=== PATIENT | female | born 1990 | race Caucasian/White ===

== ENCOUNTER → 2019-01-04 | Outpatient (CLI) | payer OTHER ==
[2019-01-04 09:53] LABS: HCT 35.1 % (34.0-46.0); HGB 12.1 gm/dL (11.4-16.0); MCH 29.9 pg (25.0-35.0); MCHC 34.4 g/dL (31.0-37.0); Mean Platelet Volume 6.6; Platelet Count 399 k/uL (150-450); RBC 4.03 m/uL (3.80-5.40); RDW 12.9 % (11.5-15.5); WBC 10.7 k/uL (3.8-10.6)
[2019-01-04 16:19] LABS: African American GFR (CKD) 142.8 (60.0-200.0)
[2019-01-04 17:40] LABS: HIV 1 AB Non-Reactive (Non-Reactive); HIV AB P24 Non-Reactive (Non-Reactive); HIV P24 AG Non-Reactive (Non-Reactive)
== END | disposition home or self-care (01) ==
LOC: LABWHC1 08:20
PROVIDERS: ATTEND Obstetrics & Gynecology
DX: Z34.01 Encounter for supervision of normal first pregnancy, first trimester (principal); R53.83 Other fatigue
CPT/HCPCS: 36415; 82565; 82947; 85027; 86762; 86780; 86850; 86900; 86901; 87340; 87390

== ENCOUNTER → 2019-04-12 | Outpatient (CLI) | payer OTHER ==
[2019-04-12 08:09] LABS: HCT 35.8 % (34.0-46.0); HGB 11.5 gm/dL (11.4-16.0); MCV 93.6 fL (80.0-100.0); Mean Platelet Volume 6.8; Platelet Count 416 k/uL (150-450); RBC 3.82 m/uL (3.80-5.40); RDW 12.9 % (11.5-15.5); WBC 11.5 k/uL (3.8-10.6)
== END ==
LOC: LABWHC1 06:47
PROVIDERS: ATTEND Obstetrics & Gynecology
DX: Z34.02 Encounter for supervision of normal first pregnancy, second trimester (principal); Z3A.00 Weeks of gestation of pregnancy not specified
CPT/HCPCS: 36415; 82950; 85027; 86850; 86900; 86901

== ENCOUNTER 2019-04-20 16:31 | Emergency (ER) | payer OTHER ==
--- NOTE | 2019-04-20 16:33 | ED ---
General Adult HPI - General Stated complaint: Needle stick, [facility] Time Seen by Provider: 04/20/19 16:32 Source: patient, RN notes reviewed Mode of arrival: ambulatory Limitations: no limitations - History of Present Illness Initial comments: 19-year-old female presents emergency from chief complaint of left thumb needlestick. 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 Patient states that there is small amount blood in her tetanus is up-to-date. She has no stiff a past history she is concerned that she is currently . Patient reports no significant history of hepatitis C or HIV of the patient she was suturing. Review of Systems ROS Statement: Those systems with pertinent positive or pertinent negative responses have been documented in the HPI. ROS Other: All systems not noted in ROS Statement are negative. General Exam General appearance: alert, in no apparent distress Head exam: Present: atraumatic, normocephalic, normal inspection Respiratory exam: Present: normal lung sounds bilaterally. Absent: respiratory distress, wheezes, rales, rhonchi, stridor Cardiovascular Exam: Present: regular rate, normal rhythm, normal heart sounds. Absent: systolic murmur, diastolic murmur, rubs, gallop, clicks GI/Abdominal exam: Present: soft, normal bowel sounds. Absent: distended, tenderness, guarding, rebound, rigid Neurological exam: Present: alert Skin exam: Present: warm, dry, intact, normal color. Absent: rash Medical Decision Making - Medical Decision Making Blood was drawn from patient and source. HIV prophylaxis based on rapid HIV Disposition Clinical Impression: Needle stick injury Disposition: HOME SELF-CARE Condition: Stable Instructions (If sedation given, give patient instructions): Needle Stick Injuries (ED) Additional Instructions: Please return to the Emergency Department if symptoms worsen or any other concerns. Is patient prescribed a controlled substance at d/c from ED?: No Referrals: Nava Martinez MD [Primary Care Provider] - 1-2 days Time of Disposition: 16:38
[2019-04-20 17:08] VITALS: BP 120/76; PULSE 70; RESP 18
== END 2019-04-20 16:50 | disposition home or self-care (01) ==
LOC: EC 16:31
DX: O9A.219 Injury, poisoning and certain other consequences of external causes complicating pregnancy, unspecified trimester (principal); S69.92XA Unspecified injury of left wrist, hand and finger(s), initial encounter; W46.0XXA Contact with hypodermic needle, initial encounter; Y93.89 Activity, other specified; Y92.234 Operating room of hospital as the place of occurrence of the external cause; Y99.0 Civilian activity done for income or pay; Z3A.00 Weeks of gestation of pregnancy not specified
CPT/HCPCS: 99282

== ENCOUNTER 2019-07-28 05:44 | Inpatient (IN) | payer OTHER, BC ==
--- NOTE | 2019-07-27 12:31 | P.HPOB ---
History of Present Illness H&P Date: 07/27/19 Chief Complaint: Requested induction of labor. This patient is a pleasant 28-year-old 1 para 0 female estimated date of confinement 07/31/2019 estimated gestational age 39-3/7 weeks who presents to labor and delivery for requested induction of labor. Patient's care was complicated by an EIF and she was referred to maternal- medicine however evaluation there was negative. Patient now has a favorable cervix is requesting induction of labor. Review of Systems Genitourinary: Reports Menstruation: Reports amenorrhea Past Medical History Past Medical History: Asthma History of Any Multi-Drug Resistant Organisms: None Reported Past Surgical History: No Surgical Hx Reported Past Anesthesia/Blood Transfusion Reactions: No Reported Reaction Past Psychological History: No Psychological Hx Reported Smoking Status: Never smoker Past Alcohol Use History: None Reported Past Drug Use History: None Reported Medications and Allergies Allergies Allergy/AdvReac Type Severity Reaction Status Date / Time No Known Allergies Allergy Verified 07/27/19 12:29 Exam - OBG Physical Exam Abdomen: bowel sounds normal, no diffuse tenderness, no bruit present, no guarding noted, no hepatomegaly, no splenomegaly, no mass Vulva: both: normal Vagina: normal moisture, no discharge Cervix: no lesion (Cervix in the office is 2 cm dilated.), no discharge Uterus: enlarged (Fundal height 38 cm) Results blood work shows she is O-, rubella immune, RPR nonreactive, hepatitis B negative, HIV is nonreactive, group B strep was negative, Glucola was normal, ultrasounds including a level III ultrasound was normal. Most recent growth ultrasound showed estimated weight at 5#15oz which is the 59th percentile and that was on July 01. Assessment and Plan Assessment: This is a pleasant 28-year-old 1 para 0 female 39-4/7 weeks gestation admitted to labor and delivery for requested induction of labor. Plan is induction of labor and anticipate vaginal delivery. (1) 39 weeks gestation of Status: Acute Code(s): Z3A.39 - 39 WEEKS GESTATION OF SNOMED Code(s): 56459217 (2) Elective induction of labor planned Status: Acute Code(s): BYM3247 - SNOMED Code(s): 896245136 (3) Rh negative status during Status: Acute Code(s): O26.899 - OTH RELATED CONDITIONS, UNSPECIFIED TRIMESTER; Z67.91 - UNSPECIFIED BLOOD TYPE, RH NEGATIVE SNOMED Code(s): 463467381
[2019-07-28] MEDS ORDERED: LACTATED RINGERS 1,000 ML IV SCH (05:56)
[2019-07-28] MEDS ORDERED: OXYTOCIN 10 UNIT/ML 1 ML VIAL IM PRN (05:56)
[2019-07-28] MEDS ORDERED: CARBOPROST TROMETHAMINE 250 MCG/ML 1 ML AMP IM PRN (05:56)
[2019-07-28] MEDS ORDERED: LIDOCAINE 0.5% (PF) 5 MG/ML (50 ML SDV) SQ PRN (05:56)
[2019-07-28] MEDS ORDERED: TERBUTALINE 1 MG/ML VIAL SQ PRN (05:56)
[2019-07-28] MEDS ORDERED: OXYTOCIN 30 UNITS/500 ML NS 30 UNIT in SALINE 1 500ML.BAG IV SCH (05:56)
[2019-07-28] MEDS ORDERED: METHYLERGONOVINE 0.2 MG/ML 1 ML AMP IM PRN (05:56)
[2019-07-28 06:22] LABS: Basophils % (A) 0 %; Eosinophils # (A) 0.1 k/uL (0-0.7); Eosinophils % (A) 1 %; HCT 38.2 % (34.0-46.0); HGB 12.9 gm/dL (11.4-16.0); Lymphocytes # (A) 1.8 k/uL (1.0-4.8); Lymphocytes % (A) 19 %; MCH 30.1 pg (25.0-35.0); MCHC 33.7 g/dL (31.0-37.0); MCV 89.4 fL (80.0-100.0); Mean Platelet Volume 7.7; Monocytes # (A) 0.4 k/uL (0-1.0); Monocytes % (A) 4 %; Neutrophils # (A) 7.3 k/uL (1.3-7.7); Neutrophils % (A) 75 %; Platelet Count 299 k/uL (150-450); RBC 4.27 m/uL (3.80-5.40); RDW 12.5 % (11.5-15.5); WBC 9.7 k/uL (3.8-10.6)
[2019-07-28] MEDS ORDERED: ROPIVACAINE 100 MG, fentaNYL (PF) 200 MCG in SODIUM CHLORIDE 0.9% 76 ML EPIDURAL ONE (13:24)
[2019-07-28] MEDS ORDERED: HYDROCORTISONE 2.5% RECTAL CREAM 30 GM TUBE RECTAL PRN (14:20)
[2019-07-28] MEDS ORDERED: BISACODYL 10 MG SUPP RECTAL PRN (14:20)
[2019-07-28] MEDS ORDERED: ACETAMINOPHEN TAB 325 MG TAB PO PRN (14:20)
[2019-07-28] MEDS ORDERED: diphenhydrAMINE 25 MG CAP PO PRN (14:20)
[2019-07-28] MEDS ORDERED: diphenhydrAMINE 50 MG/ML 1 ML VIAL IVP PRN (14:20)
[2019-07-28] MEDS ORDERED: Rhogam IMMUNE GLOBULIN 1,500 UNIT/1 ML IM ONE (14:20)
[2019-07-28] MEDS ORDERED: LANOLIN CREAM 5 GM TUBE TOPICAL PRN (14:20)
[2019-07-28] MEDS ORDERED: ZOLPIDEM 5 MG TAB PO PRN (14:20)
[2019-07-28] MEDS ORDERED: WITCH HAZEL 1 EACH MED..PAD TOPICAL PRN (14:20)
[2019-07-28] MEDS ORDERED: OXYTOCIN 20 UNITS/1000 ML NS 1,000 ML IV SCH (14:20)
[2019-07-28] MEDS ORDERED: BENZOCAINE/MENTHOL SPRAY 1 GM/SPRAY AEROSOL TOPICAL PRN (14:20)
[2019-07-28] MEDS ORDERED: SIMETHICONE 80 MG CHEWABLE PO PRN (14:20)
--- NOTE | 2019-07-28 16:48 | P.PROBDLV ---
Vaginal Delivery Note - . Vaginal Delivery Note: Normal vaginal delivery viable female Apgars 9 and 9 delivery time is 1354 hrs. Please see dictated H&P for intimate details of this patient's admission. Brief summary is a pleasant 28-year-old 1 para 0 female 39-4/7 weeks who presented this morning for requested induction of labor. On admission patient's cervix is 3 cm dilated she has artificial rupture membranes for clear fluid and Pitocin induction of labor per protocol. Patient's labor progresses she does get an epidural for pain control. Patient quickly thereafter gets to complete pushes the head to the perineum. Posterior perineum was supported we have controlled delivery of infant's head over the intact perineum. Mouth and nares are bulb suctioned. There is no evidence of nuchal cord but there is a compound presentation with hand. With gentle downward traction and maternal effort we have delivery the anterior and posterior shoulder and rest this infant's body. Is a vigorous viable female Apgars 9 and 9 delivery time was 1354 hrs. After delivery of the infant the umbilical cord is aloud to quit pulsing is doubly clamped and cut. Cord blood is obtained for Rh status. Placenta spontaneously delivered intact. Inspection of the perineum shows a small first- degree perineal laceration the left lower vaginal area which is repaired with 3- 0 Vicryl usual fashion. Good reapproximation is noted. All counts are correct 3. Estimated blood loss is 100 mL. There are no complications. and mother stable delivery room.
[2019-07-28] MEDS: SENNOSIDES-DOCUSATE SODIUM 1 EACH TAB PO SCH ×2 (18:14→21:01)
[2019-07-29 04:40] VITALS: PULSE 76
[2019-07-29] MEDS: IBUPROFEN 600 MG TAB PO PRN ×2 (06:40→13:13)
--- NOTE | 2019-07-29 06:40 | P.PNOBGVD ---
Subjective - Subjective Patient reports: Reports appetite normal, Reports voiding normally, Reports pain well controlled, Reports ambulating normally : doing well Objective - Latest Vital Signs Latest vital signs: Vital Signs Temp Pulse Resp BP 07/29/19 04:00 98.0 F 76 14 134/72 07/29/19 00:00 98.2 F 75 16 110/80 07/28/19 20:00 98.0 F 77 16 108/76 07/28/19 16:15 92 16 122/74 07/28/19 15:45 98.5 F 76 16 131/73 07/28/19 15:15 78 15 126/72 07/28/19 15:00 83 16 128/80 07/28/19 14:45 83 16 123/58 07/28/19 14:30 96 16 124/68 07/28/19 14:15 98 16 123/76 Intake and Output 07/28/19 07/28/19 07/29/19 14:59 22:59 06:59 Other: # Voids 1 3 - Exam Lungs: bilateral: normal Chest: Normal S1, Normal S2 Extremities: Present: normal Abdomen: Present: normal appearance, soft Uterus: Present: normal, firm Assessment and Plan Assessment: day #1. Patient is resting without complaints. She desires to go home. Vital signs are stable she is afebrile. Uterus is firm nontender she's having normal lochia. My impression is a normal course. Plan is to continue routine care and discharge home later today (1) 39 weeks gestation of Current Visit: No Status: Acute Code(s): Z3A.39 - 39 WEEKS GESTATION OF SNOMED Code(s): 56316640 (2) Elective induction of labor planned Current Visit: No Status: Acute Code(s): KGZ2307 - SNOMED Code(s): 923616175 (3) Rh negative status during Current Visit: No Status: Acute Code(s): O26.899 - OTH RELATED CONDITIONS, UNSPECIFIED TRIMESTER; Z67.91 - UNSPECIFIED BLOOD TYPE, RH NEGATIVE SNOMED Code(s): 041858873
--- NOTE | 2019-07-29 06:43 | P.DS ---
Providers Date of admission: 07/28/19 05:44 Expected date of discharge: 07/29/19 Attending physician: Jamie Rothman Primary care physician: Stated None - Discharge Diagnosis(es) (1) 39 weeks gestation of Current Visit: No Status: Acute (2) Elective induction of labor planned Current Visit: No Status: Acute (3) Rh negative status during Current Visit: No Status: Acute Hospital Course: Please see dictated H&P for intimate details of this patient's admission. Brief summary this is a pleasant 28-year-old 1 para 0 female 39-4/7 weeks who presents to labor and delivery for requested induction of labor. Patient quickly goes on have a vaginal delivery of viable female . Please see dictated delivery note. day #1 patient wishes to go home was felt be stable for discharge home follow up with me in 6 weeks. Procedures: Induction of labor and normal vaginal delivery Patient Condition at Discharge: Good Plan - Discharge Summary New Discharge Prescriptions: No Action Montelukast [Singulair] 10 mg PO DAILY Loratadine [Claritin] 10 mg PO DAILY Budesonide/Formoterol Fumarate [Symbicort 80-4.5 Mcg Inhaler] 80 mg INHALATION DAILY Discharge Medication List Budesonide/Formoterol Fumarate [Symbicort 80-4.5 Mcg Inhaler] 80 mg INHALATION DAILY 07/28/19 [History] Loratadine [Claritin] 10 mg PO DAILY 07/28/19 [History] Montelukast [Singulair] 10 mg PO DAILY 07/28/19 [History] Follow up Appointment(s)/Referral(s): Jamie Rothman MD [STAFF PHYSICIAN] - 09/13/19 2:00 pm Patient Instructions/Handouts: Vaginal Delivery (DC) Activity/Diet/Wound Care/Special Instructions: No intercourse or anything per vagina for 6 weeks. Please call if any fever, chills, excessive vaginal bleeding, and/or abdominal pain Discharge Disposition: HOME SELF-CARE
[2019-07-29 10:33] VITALS: BP 123/68; RESP 18; TEMP 97.4
[2019-07-29] MEDS: SENNOSIDES-DOCUSATE SODIUM 1 EACH TAB PO SCH (11:14)
== END 2019-07-29 15:30 | disposition home or self-care (01) | DRG 807 ==
LOC: 4FBP 05:44
PROVIDERS: ADMIT Obstetrics & Gynecology; ATTEND Obstetrics & Gynecology
PROC: 00HU33Z Insertion of Infusion Device into Spinal Canal, Percutaneous Approach (ICD-10-PCS; principal; 2019-07-28)
PROC: 0HQ9XZZ Repair Perineum Skin, External Approach (ICD-10-PCS; principal; 2019-07-28)
PROC: 3E0R3BZ Introduction of Anesthetic Agent into Spinal Canal, Percutaneous Approach (ICD-10-PCS; principal; 2019-07-28)
PROC: 10E0XZZ Delivery of Products of Conception, External Approach (ICD-10-PCS; principal; 2019-07-28)
DX: O32.6XX0 Maternal care for compound presentation, not applicable or unspecified (principal); Z37.0 Single live birth; O99.52 Diseases of the respiratory system complicating childbirth; O26.893 Other specified pregnancy related conditions, third trimester; O70.0 First degree perineal laceration during delivery; J45.909 Unspecified asthma, uncomplicated; Z3A.39 39 weeks gestation of pregnancy; Z67.91 Unspecified blood type, Rh negative
CPT/HCPCS: 85025; 85461; 86850; 86900; 86901

== ENCOUNTER → 2021-09-15 | Outpatient (CLI) | payer OTHER, BC ==
[2021-09-15 11:41] LABS: HCT 37.6 % (37.2-46.3); HGB 12.1 g/dL (12.0-15.0); MCH 29.3 pg (27.0-32.0); MCHC 32.2 g/dL (32.0-37.0); NRBC Per 100 WBC 0 /100 WBCS (0.0-0.0); Platelet Count 386 X 10*3/uL (140-440); RBC 4.13 X 10*6/uL (4.10-5.20); RDW 12.8 % (11.5-14.5); WBC 8.49 X 10*3/uL (4.50-10.00)
== END | disposition home or self-care (01) ==
LOC: LABWHC1 08:29
PROVIDERS: ATTEND Obstetrics & Gynecology
DX: Z00.00 Encounter for general adult medical examination without abnormal findings (principal)
CPT/HCPCS: 36415; 82950; 85027

== ENCOUNTER 2021-12-09 12:00 | Inpatient (IN) | payer BC ==
[2021-12-09] MEDS ORDERED: CARBOPROST TROMETHAMINE 250 MCG/ML 1 ML AMP IM PRN (12:42)
[2021-12-09] MEDS ORDERED: OXYTOCIN 10 UNIT/ML 1 ML VIAL IM PRN (12:42)
[2021-12-09] MEDS ORDERED: METHYLERGONOVINE 0.2 MG/ML 1 ML AMP IM PRN (12:42)
[2021-12-09] MEDS ORDERED: LIDOCAINE 0.5% (PF) 5 MG/ML (50 ML SDV) SQ PRN (12:42)
[2021-12-09] MEDS ORDERED: TERBUTALINE 1 MG/ML VIAL SQ PRN (12:42)
[2021-12-09] MEDS ORDERED: LACTATED RINGERS 1,000 ML IV SCH (12:45)
--- NOTE | 2021-12-09 12:58 | P.HPOB ---
History of Present Illness H&P Date: 12/09/21 Chief Complaint: Contractions This patient is a pleasant 31-year-old 2 para 1 female estimated date of confinement 12/18/2021 estimated gestational age 38-5/7 weeks who presents to labor and delivery with complaints of contractions. Patient was here earlier this morning was 3 cm dilated is now 9 cm dilated thought to be in active labor. care has been uncomplicated. She did develop COVID at approximately 25 weeks' gestation. otherwise has been uncomplicated other than some varicose veins and vulvar varicosities. Review of Systems Genitourinary: Reports Menstruation: Reports amenorrhea Past Medical History Past Medical History: Asthma History of Any Multi-Drug Resistant Organisms: None Reported Past Surgical History: No Surgical Hx Reported Past Anesthesia/Blood Transfusion Reactions: No Reported Reaction Smoking Status: Never smoker Past Alcohol Use History: None Reported Past Drug Use History: None Reported - Past Family History Mother Family Medical History: Thyroid Disorder Medications and Allergies Home Medications Medication Instructions Recorded Confirmed Type Budesonide/Formoterol Fumarate 80 mg INHALATION DAILY 07/28/19 12/09/21 History [Symbicort 80-4.5 Mcg Inhaler] Loratadine [Claritin] 10 mg PO DAILY 07/28/19 12/09/21 History Montelukast [Singulair] 10 mg PO DAILY 07/28/19 12/09/21 History Pnv No.95/Ferrous Fum/Folic AC 1 tab PO DAILY 12/09/21 12/09/21 History [ Multivitamin Tablet] Allergies Allergy/AdvReac Type Severity Reaction Status Date / Time No Known Allergies Allergy Verified 12/09/21 12:40 Exam Intake and Output 12/08/21 12/09/21 12/09/21 22:59 06:59 14:59 Other: Weight 84.368 kg - OBG Physical Exam Abdomen: bowel sounds normal, no diffuse tenderness, no bruit present, no guarding noted, no hepatomegaly, no splenomegaly, no mass Vulva: both: normal Vagina: normal moisture, no discharge Cervix: no lesion (Cervix is 9 simmers dilated completely effaced -2 station vertex), no discharge Uterus: enlarged Results blood work shows she is O-, rubella immune, RPR nonreactive, hepatitis B negative, HIV is nonreactive, Glucola was normal, group B strep was negative, and growth ultrasounds have been normal. Assessment and Plan Assessment: This is a pleasant 31-year-old 2 para 1 female 38-5/7 weeks' gestation in active labor. Plan is anticipate vaginal delivery. (1) 38 weeks gestation of Current Visit: Yes Status: Acute Code(s): Z3A.38 - 38 WEEKS GESTATION OF SNOMED Code(s): 93524706 (2) Normal labor Current Visit: Yes Status: Acute Code(s): O80 - ENCOUNTER FOR FULL-TERM UNCOMPLICATED DELIVERY; Z37.9 - OUTCOME OF DELIVERY, UNSPECIFIED SNOMED Code(s): 21150867 (3) Rh negative status during Current Visit: No Status: Acute Code(s): O26.899 - OTH RELATED CONDITIONS, UNSPECIFIED TRIMESTER; Z67.91 - UNSPECIFIED BLOOD TYPE, RH NEGATIVE SNOMED Code(s): 210987657
[2021-12-09 13:09] LABS: Basophils % (A) 0 %; Eosinophils % (A) 0 %; HCT 38.7 % (34.0-46.0); HGB 12.7 gm/dL (11.4-16.0); Lymphocytes % (A) 7 %; MCH 29.8 pg (25.0-35.0); MCV 90.3 fL (80.0-100.0); Mean Platelet Volume 7.5; Monocytes # (A) 0.5 k/uL (0-1.0); Monocytes % (A) 4 %; Neutrophils # (A) 12.3 k/uL (1.3-7.7); Neutrophils % (A) 88 %; Platelet Count 432 k/uL (150-450); RBC 4.28 m/uL (3.80-5.40); RDW 13.3 % (11.5-15.5)
[2021-12-09] MEDS ORDERED: ZOLPIDEM 5 MG TAB PO PRN (14:05)
[2021-12-09] MEDS ORDERED: Rhogam IMMUNE GLOBULIN 1,500 UNIT/1 ML IM ONE (14:05)
[2021-12-09] MEDS ORDERED: ACETAMINOPHEN TAB 325 MG TAB PO PRN (14:05)
[2021-12-09] MEDS ORDERED: LANOLIN CREAM 5 GM TUBE TOPICAL PRN (14:05)
[2021-12-09] MEDS ORDERED: bisacodyL 10 MG SUPP RECTAL PRN (14:05)
[2021-12-09] MEDS ORDERED: diphenhydrAMINE 50 MG/ML 1 ML VIAL IVP PRN (14:05)
[2021-12-09] MEDS ORDERED: SIMETHICONE 80 MG CHEWABLE PO PRN (14:05)
[2021-12-09] MEDS ORDERED: diphenhydrAMINE 25 MG CAP PO PRN (14:05)
[2021-12-09] MEDS ORDERED: HYDROCORTISONE 2.5% RECTAL CREAM 30 GM TUBE RECTAL PRN (14:05)
[2021-12-09] MEDS ORDERED: BENZOCAINE/MENTHOL SPRAY 1 GM/SPRAY AEROSOL TOPICAL PRN (14:05)
[2021-12-09] MEDS ORDERED: OXYTOCIN 30 UNITS/500 ML NS 30 UNIT in SALINE 1 500ML.BAG IV SCH (14:15)
--- NOTE | 2021-12-09 14:15 | P.PROBDLV ---
Vaginal Delivery Note - . Vaginal Delivery Note: Normal spontaneous vaginal delivery viable male infant Apgars 9 and 9 delivery time was 1350 hrs. Please see dictated H&P for intimate details of this patient's admission. Brief summary this is a pleasant 31-year-old 2 para 1 female estimated gestational age 38-5/7 weeks who presents to labor and delivery with complaints of contractions. Patient's found to be 9 cm dilated in active labor. Patient is artificial rupture membranes for clear fluid. Patient quickly thereafter progresses and pushes approximately 3 times pushes the head to the perineum. Posterior perineum is supported we have controlled delivery of the 's head over the intact perineum. 's presentation was left occiput anterior. There is no evidence of a nuchal cord. With gentle downward traction we then have deliver the anterior and posterior shoulder and rest this infant's body. This is a vigorous viable male infant Apgars are 9 and 9 delivery time was 1350 hrs. After delivery of the infant is laid on the mother's abdomen. Once the cord is done pulsating, the umbilical cord is doubly clamped and cut. The placenta is then spontaneously delivered intact. Estimated blood loss is 100 mL. There are no lacerations and no repairs required. Infant and mother stable delivery room. There are no complications. All counts are correct 3.
[2021-12-09] MEDS: SENNOSIDES-DOCUSATE SODIUM 1 EACH TAB PO SCH (20:40)
[2021-12-09] MEDS ORDERED: LORATADINE 10 MG TAB PO SCH (21:00)
[2021-12-09] MEDS ORDERED: MONTELUKAST 10 MG TAB PO SCH (21:00)
[2021-12-09] MEDS ORDERED: SYMBICORT 80-4.5 MCG INHALER INHALATION SCH ×2 (21:00)
[2021-12-09] MEDS: IBUPROFEN 600 MG TAB PO PRN (22:46)
--- NOTE | 2021-12-10 06:35 | P.PNOBGVD ---
Subjective - Subjective Patient reports: Reports appetite normal, Reports voiding normally, Reports pain well controlled, Reports ambulating normally : doing well Objective - Latest Vital Signs Latest vital signs: Vital Signs Temp Pulse Resp BP Pulse Ox 12/10/21 00:50 98.1 F 72 16 109/62 98 12/09/21 19:45 98.3 F 87 16 124/71 98 12/09/21 16:06 97.7 F 75 14 113/70 12/09/21 15:36 74 16 108/59 12/09/21 15:06 98.4 F 76 16 112/60 12/09/21 14:51 88 14 115/58 12/09/21 14:36 86 14 109/59 12/09/21 14:21 85 16 107/60 12/09/21 14:06 98.2 F 93 16 115/66 12/09/21 12:30 97 14 125/71 Intake and Output 12/09/21 12/09/21 12/10/21 14:59 22:59 06:59 Intake Total 167 Output Total 50 Balance 167 -50 Intake: Intake, IV Titration 167 Amount Oxytocin 30 Units/500 ml 167 Ns 30 unit In Saline 1 500ml.bag @ Per Protocol IV .Q0M [facility] Rx#:[id number] Output: Output, Quantitative 50 Blood Loss Other: # Voids 1 1 Weight 84.368 kg - Exam Lungs: bilateral: normal Chest: Normal S1, Normal S2 Extremities: Present: normal Abdomen: Present: normal appearance, soft Uterus: Present: normal, firm - Labs Labs: Abnormal Lab Results - Last 24 Hours (Table) 12/09/21 Range/Units 12:35 WBC 14.0 H (3.8-10.6) k/uL Neutrophils # 12.3 H (1.3-7.7) k/uL Assessment and Plan Assessment: day #1. Patient is resting without complaints and wishes to go home. Vital signs are stable and she is afebrile. Uterus is firm nontender and she is having normal lochia. My impression is that this is a normal course. Plan is to continue routine care discharge home today (1) 38 weeks gestation of Current Visit: Yes Status: Acute Code(s): Z3A.38 - 38 WEEKS GESTATION OF Stephanie BAXTER SNOMED Code(s): 36726362 (2) Normal labor Current Visit: Yes Status: Acute Code(s): O80 - ENCOUNTER FOR FULL-TERM UNCOMPLICATED DELIVERY; Z37.9 - OUTCOME OF DELIVERY, UNSPECIFIED SNOMED Code(s): 20586088 (3) Rh negative status during Current Visit: No Status: Acute Code(s): O26.899 - OTH RELATED CONDITIONS, UNSPECIFIED TRIMESTER; Z67.91 - UNSPECIFIED BLOOD TYPE, RH NEGATIVE SNOMED Code(s): 616081301
--- NOTE | 2021-12-10 06:40 | P.DS ---
Providers Date of admission: 12/09/21 12:30 Expected date of discharge: 12/10/21 Attending physician: Jamie Rothman Primary care physician: Stated None - Discharge Diagnosis(es) (1) 38 weeks gestation of Current Visit: Yes Status: Acute (2) Normal labor Current Visit: Yes Status: Acute (3) Rh negative status during Current Visit: No Status: Acute Hospital Course: Please see dictated H&P for intimate details of this patient's admission. In brief summary this is a pleasant 31-year-old 2 para 1 female 38-5/7 weeks gestation who is admitted to labor and delivery in active labor. Patient quickly goes on have a vaginal delivery viable male . Please see dictated delivery note. day #1 patient is doing well wishes to go home. Patient's felt be stable for discharge home follow up with me in 6 weeks. Procedures: Normal spontaneous vaginal delivery Patient Condition at Discharge: Good Plan - Discharge Summary New Discharge Prescriptions: New Ibuprofen [Motrin] 600 mg PO Q6HR PRN #30 tab PRN Reason: Mild Pain (Scale 1 To 3) No Action Montelukast [Singulair] 10 mg PO DAILY Loratadine [Claritin] 10 mg PO DAILY Budesonide/Formoterol Fumarate [Symbicort 80-4.5 Mcg Inhaler] 80 mg INHALATION DAILY Pnv No.95/Ferrous Fum/Folic AC [ Multivitamin Tablet] 1 tab PO DAILY Discharge Medication List Budesonide/Formoterol Fumarate [Symbicort 80-4.5 Mcg Inhaler] 80 mg INHALATION DAILY 07/28/19 [History] Loratadine [Claritin] 10 mg PO DAILY 07/28/19 [History] Montelukast [Singulair] 10 mg PO DAILY 07/28/19 [History] Pnv No.95/Ferrous Fum/Folic AC [ Multivitamin Tablet] 1 tab PO DAILY 12/09/21 [History] Ibuprofen [Motrin] 600 mg PO Q6HR PRN #30 tab 12/10/21 [Rx] Follow up Appointment(s)/Referral(s): Jamie Rothman MD [STAFF PHYSICIAN] - 6 Weeks Patient Instructions/Handouts: Vaginal Delivery (DC) Activity/Diet/Wound Care/Special Instructions: No intercourse or anything per vagina for 6 weeks. Please call if any fever, chills, excessive vaginal bleeding, and/or abdominal pain. Discharge Disposition: HOME SELF-CARE
[2021-12-10 07:32] LABS: Basophils % (A) 0 %; Eosinophils # (A) 0.2 k/uL (0-0.7); Eosinophils % (A) 1 %; HCT 36.5 % (34.0-46.0); HGB 11.6 gm/dL (11.4-16.0); Lymphocytes # (A) 1.4 k/uL (1.0-4.8); Lymphocytes % (A) 12 %; MCH 29.2 pg (25.0-35.0); MCHC 31.9 g/dL (31.0-37.0); MCV 91.5 fL (80.0-100.0); Monocytes # (A) 0.5 k/uL (0-1.0); Monocytes % (A) 4 %; Neutrophils # (A) 9.6 k/uL (1.3-7.7); Neutrophils % (A) 81 %; Platelet Count 346 k/uL (150-450); RBC 3.98 m/uL (3.80-5.40); RDW 12.8 % (11.5-15.5); WBC 11.8 k/uL (3.8-10.6)
[2021-12-10] MEDS: SENNOSIDES-DOCUSATE SODIUM 1 EACH TAB PO SCH (08:11)
[2021-12-10] MEDS: IBUPROFEN 600 MG TAB PO PRN (08:11)
[2021-12-10 08:18] VITALS: BP 104/62; PULSE 87; RESP 17; TEMP 99
[2021-12-10] MEDS ORDERED: LORATADINE 10 MG TAB PO SCH (21:00)
== END 2021-12-10 15:00 | disposition home or self-care (01) | DRG 807 ==
LOC: FBPOP 12:00 → 4FBP 12:30
PROVIDERS: ADMIT Obstetrics & Gynecology; ATTEND Obstetrics & Gynecology
PROC: 3E0234Z Introduction of Serum, Toxoid and Vaccine into Muscle, Percutaneous Approach (ICD-10-PCS; principal; 2021-12-09)
PROC: 10E0XZZ Delivery of Products of Conception, External Approach (ICD-10-PCS; principal; 2021-12-09)
PROC: 10907ZC Drainage of Amniotic Fluid, Therapeutic from Products of Conception, Via Natural or Artificial Opening (ICD-10-PCS; principal; 2021-12-09)
DX: O26.893 Other specified pregnancy related conditions, third trimester (principal); Z37.0 Single live birth; Z67.41 Type O blood, Rh negative; O87.8 Other venous complications in the puerperium; O99.52 Diseases of the respiratory system complicating childbirth; J45.909 Unspecified asthma, uncomplicated; Z3A.38 38 weeks gestation of pregnancy; Z79.51 Long term (current) use of inhaled steroids; Z79.899 Other long term (current) drug therapy; Z86.16 Personal history of COVID-19; Z28.310 Unvaccinated for COVID-19; Z83.49 Family history of other endocrine, nutritional and metabolic diseases
CPT/HCPCS: 85025; 85461; 86850; 86900; 86901; 94640

== ENCOUNTER → 2021-12-09 | Outpatient (CLI) | payer BC ==
[2021-12-09 03:26] VITALS: BP 127/78; PULSE 96; RESP 16; TEMP 98.8
--- NOTE | 2021-12-09 08:14 | P.MSEPDOC ---
Presenting Problems - Arrival Data Date of Arrival on Unit: 12/09/21 Time of Arrival on Unit: 01:20 Mode of Transport: Ambulatory - Complaint OB-Reason for Admission/Chief Complaint: Possible Onset of Labor, Rule Out SROM Comment: Pt reports UC's over the last few hours q10min. Pt states possible ROM around 0110 for clear fluid. Medical History - Information : 2 Para: 1 Term: 1 : 0 Abortions: Spontaneous or Elective: 0 Number of Living Children: 1 - Gestational Age Gestational Age by JAC (wks/days): 38 Weeks and 5 Days Review of Systems - Review of Systems Constitutional: No problems Breast: No problems ENT: No problems Cardiovascular: No problems Respiratory: No problems Gastrointestinal: No problems Genitourinary: No problems Musculoskeletal: No problems Neurological: No problems Skin: No problems Vital Signs - Temperature Temperature: 98.8 F Temperature Source: Temporal Artery Scan - Pulse Pulse Oximetery Pulse Rate: 96 Pulse Assessment Method: Pulse Oximetry - Respirations Respiratory Rate: 16 Oxygen Delivery Method: Room Air O2 Sat by Pulse Oximetry: 97 - Blood Pressure Right Arm Blood Pressure: 127/78 Blood Pressure Mean: 94 Blood Pressure Source: Automatic Cuff Medical Screen Scoring - Cervical Exam Dilation (cm): 3 Effacement (%): 60 Station: -3 Membranes: Intact - Uterine Contractions Frequency From (mins): 3 Frequency To (mins): 10 Duration From (seconds): 50 Duration To (seconds): 80 Intensity: Mild Resting: Soft to palpation - Assessment - Baby A Baseline FHR: 125 Heart Rate - NICHD Category: Category I (Normal) NST: Reactive Physician Notification - Physician Notified Physician Notified Date: 12/09/21 Physician Notified Time: 02:55 Physician: Jamie Rothman New Order Received: Yes (D/C home) - Notification Comment Comment: Dr. Rothman notified of pt's arrival to triage with c/o UC's q10min and possible ROM. Provider aware of negative amnisure testing and pt's comfort level as well. POC discussed at this time. Pt okay to D/C home with education on labor s/s and when to return to the hospital. Maternal Triage Index - Maternal Triage Index Presenting for scheduled procedure w/no complaint: No - Stat/Priority 1 Stat Priority 1: No - Urgent/Priority 2 Urgent Priority 2: No - Prompt/Priority 3 Prompt Priority 3: No - Non-Urgent/Priority 4 Non-Urgent Priority 4: Yes Criteria Met for Priority 4: Pt is a with JAC 12/18/21 here at 38.5 weeks of gestation with c/o UC's q10min and possible SROM around 0110. Pt states that she has been having some brownish-red discharge as well. Disposition - Disposition OB Disposition: Discharge to home Discharge Date: 12/09/21 Discharge Time: 03:08 I agree with the RN Medical Screening Exam: Yes Case reviewed; plan agreed upon as documented in EMR&OBIX.: Yes Diagnosis: FALSE LABOR AT OR AFTER 37 COMPLETED WEEKS OF GESTATION
== END | disposition home or self-care (01) ==
LOC: FBPOP 01:21
PROVIDERS: ATTEND Obstetrics & Gynecology
DX: O47.1 False labor at or after 37 completed weeks of gestation (principal); Z3A.38 38 weeks gestation of pregnancy
CPT/HCPCS: 59025; 84112; 99213